=== PATIENT | male | born 1950 | race African-American/Black ===

== ENCOUNTER 2017-08-09 13:44 | Emergency (ER) | payer MEDICARE, MEDICAID ==
[~2017-08-09] VITALS: Ht 177.8 cm; Wt 81.6 kg
[2017-08-09 16:06] VITALS: BP 122/86
== END 2017-08-09 16:11 | disposition home or self-care (01) ==
LOC: ER 13:44
DX: G89.29 Other chronic pain (principal); M25.561 Pain in right knee; Z76.0 Encounter for issue of repeat prescription

== ENCOUNTER 2018-06-12 00:35 | Emergency (ER) | payer MEDICARE, OTHER ==
[~2018-06-12] VITALS: Ht 180.3 cm; Wt 81.6 kg
[2018-06-12] MEDS ORDERED: IBUPROFEN 600 MG TAB PO ONE (01:00)
[2018-06-12 03:27] VITALS: BP 120/77
[2018-06-12] MEDS ORDERED: HYDROcodone-ACET 10/325MG TAB PO ONE (04:15)
[2018-06-12] MEDS ORDERED: KETOROLAC TROMETH 60MG/2ML VIAL IM ONE (04:15)
== END 2018-06-12 06:26 | disposition home or self-care (01) ==
LOC: EDBD 00:35 → ER 00:43
DX: M19.072 Primary osteoarthritis, left ankle and foot (principal)
CPT/HCPCS: 73630; 96372; 99284; J1885; L3260

== ENCOUNTER 2019-09-28 14:58 | Emergency (ER) | payer MEDICARE, MEDICAID ==
[~2019-09-28] VITALS: Ht 175.3 cm; Wt 81.6 kg
[2019-09-29] VITALS: BP 134/93
== END 2019-09-29 01:45 | disposition home or self-care (01) ==
LOC: ER 14:58 → EDBD 14:58 → ER 09-29 01:45
DX: S93.402A Sprain of unspecified ligament of left ankle, initial encounter (principal); M25.572 Pain in left ankle and joints of left foot; X58.XXXA Exposure to other specified factors, initial encounter; Y93.89 Activity, other specified; Y92.89 Other specified places as the place of occurrence of the external cause; Y99.8 Other external cause status
CPT/HCPCS: 73610; 93971

== ENCOUNTER 2019-11-06 17:06 | Emergency (ER) | payer MEDICARE, MEDICAID | END 2019-11-06 17:48 | disposition left against medical advice (07) | LOC: ER 17:06 | DX: H47.11 Papilledema associated with increased intracranial pressure (principal); Z53.21 Procedure and treatment not carried out due to patient leaving prior to being seen by health care provider ==

== ENCOUNTER 2020-07-24 13:07 | Emergency (ER) | payer MEDICARE, MEDICAID ==
[~2020-07-24] VITALS: Ht 177.8 cm; Wt 81.6 kg
[2020-07-24 14:15] VITALS: BP 130/75
== END 2020-07-24 14:36 | disposition home or self-care (01) ==
LOC: ER 13:07
DX: M79.672 Pain in left foot (principal); F17.210 Nicotine dependence, cigarettes, uncomplicated; Z86.73 Personal history of transient ischemic attack (TIA), and cerebral infarction without residual deficits